=== PATIENT | female | born 1980 | race Caucasian/White ===

== ENCOUNTER 2023-06-27 06:04 | Day surgery (SDC) | payer OTHER, SELFPAY ==
[2023-06-27] VITALS (10 sets, daily range): BP systolic 113–130; BP diastolic 73–88; BMI 42.1
[2023-06-27] MEDS: TYLENOL 1000 MG PO (07:06)
[2023-06-27] MEDS: CELEBREX 200 MG PO (07:06)
[2023-06-27] MEDS: NEURONTIN 300 MG PO (07:06)
[2023-06-27] MEDS: HEPARIN 5000 UNITS SC (07:06)
[2023-06-27] MEDS: NORMOSOL-R 1000 IV (07:19)
--- NOTE | 2023-06-27 09:07 | OR.RPT ---
Operative Report
Operative Report
Preop diagnosis: Left labial granulation tissue and lesion, abnormal uterine bleeding
postop diagnosis anal vulvar fistula
Anesthesia General LMA intubation
Procedure exam under anesthesia, dilation and curettage
Surgeon Benton Osman
Assist: VIKTOR Pruitt
Procedure in detail: I was present in the operating room when she arrived, she was placed in her left side. Colonoscopy was performed by Dr. London there was no obvious evidence of fistulous tract or any other significant abnormalities throughout
the colon, a few diverticula were seen. After colonoscopy the patient was moved in the operating table and placed in lithotomy position using Jaquan stirrups. General anesthesia was induced and LMA intubation was performed, we examined the labia
carefully and noted presence of granulation tissue on the posterior aspect of left labium majora close to the perineal body. The patient was prepped and draped timeout procedure was completed she received 2 g of Ancef. The tract was examined and
explored with a probe and initially it was unclear if there was any obvious fistula present. Hydrogen peroxide was injected gently into the track and some dimpling of anal mucosa was identified and eventually this tract into the anus under direct
visualization. Dr. London placed a seton into the tract and tied at the level of perineum. Given the fact that she has an obvious anal vulvar fistula I did not perform partial simple vulvectomy as previously planned. And examined the vagina in its
entirety and I did not see any other concerning lesions. The patient does have a multiparous cervix and probably a grade 1 prolapse. Anterior lip of the cervix was grasped with single-tooth tenaculum, the uterus was sounded to 12 cm, the
endocervical canal was gently dilated sharp curettage of the endometrial canal was performed and tissue was submitted to pathology. I turned the case back to Dr. London who injected anesthetic around the site of the fistula tract with a plan to
return back to the operating room for excision of tract and anal flap in approximately 6 to 8 weeks. I was present and scrubbed for the entire procedure as dictated above.
[2023-06-27] MEDS: ZOFRAN 4 MG IV (09:12)
[2023-06-27] MEDS: SUBLIMAZE 50 MCG IV (09:15)
== END 2023-06-27 11:00 | disposition home or self-care (01) ==
LOC: SDS 06:04
PROVIDERS: ATTENDING PHYSICIAN Surgery
DX: Z12.11 Encounter for screening for malignant neoplasm of colon (principal); N89.8 Other specified noninflammatory disorders of vagina; N93.9 Abnormal uterine and vaginal bleeding, unspecified; A58 Granuloma inguinale; Z90.49 Acquired absence of other specified parts of digestive tract; K57.30 Diverticulosis of large intestine without perforation or abscess without bleeding; N82.3 Fistula of vagina to large intestine; K64.4 Residual hemorrhoidal skin tags; K63.89 Other specified diseases of intestine; N85.8 Other specified noninflammatory disorders of uterus
CPT/HCPCS: 58120; 45381; 46020; 88305; 86850; 86900; 86901

== ENCOUNTER 2023-08-29 06:09 | Day surgery (SDC) | payer OTHER, SELFPAY ==
[2023-08-24 07:47] VITALS: BMI 40.0
[2023-08-24 09:03] LABS: Hematocrit 38.1 % (37.0-47.0); Hemoglobin 12.3 g/dL (12.0-16.0); Mean Corp Hgb Conc. 32.3 g/dL (33.0-37.0); Mean Corpuscular Volume 80.5 fL (81.0-99.0); Mean Platelet Volume 9.8 fL (7.4-10.4); Platelet Count 362 10^3/uL (130-400); Red Blood Cell Count 4.73 10^6/uL (4.20-5.40); Red Cell Dist. Width 13.9 % (11.5-14.5); White Blood Cell Count 8.2 10^3/uL (4.8-10.8)
[2023-08-24 09:07] LABS: INR 0.97; PT 12.6 Sec (11.4-14.6)
[2023-08-24 09:08] LABS: APTT 30.6 Sec (23.4-35.0)
[2023-08-24 09:49] LABS: ALT (SGPT) 20 U/L (0-35); AST (SGOT) 21 U/L (14-36); Albumin 4.2 g/dl (3.5-5.0); Alkaline Phosphatase 138 U/L (38-126); Blood Urea Nitrogen 12 mg/dl (7-17); Calcium 9.4 mg/dl (8.4-10.2); Carbon Dioxide 25 mmol/L (22-30); Chloride 102 mmol/L (98-107); Estimated Creatinine Clearance > 125 ml/min; Glucose 102 mg/dl (70-99); Potassium 3.7 mmol/L (3.5-5.1); Sodium 139 mmol/L (135-145); Total Bilirubin 0.2 mg/dl (0.2-1.3); Total Protein 6.8 g/dl (6.3-8.2); eGFR > 60.00
[2023-08-29] VITALS (14 sets, daily range): BP systolic 121–161; BP diastolic 73–109; BMI 40.0; BMI 42.1
[2023-08-29] MEDS: TYLENOL 1000 MG PO (06:31)
[2023-08-29] MEDS: NORMOSOL-R 1000 IV (07:01)
[2023-08-29] MEDS: DILAUDID 0.25 MG IV ×2 (10:00→11:04)
[2023-08-29] MEDS: ROXICODONE 10 MG PO (11:57)
== END 2023-08-29 12:24 | disposition home or self-care (01) ==
LOC: SDS 06:09
PROVIDERS: ATTENDING PHYSICIAN Surgery; FAMILY PHYSICIAN Student in an Organized Health Care Education/Training Program
DX: N82.3 Fistula of vagina to large intestine (principal); R87.89 Other abnormal findings in specimens from female genital organs
CPT/HCPCS: 46288; 36415; 80053; 85027; 85610; 85730; J1335

== ENCOUNTER 2023-10-03 06:22 | Day surgery (SDC) | payer OTHER, SELFPAY ==
--- NOTE | 2023-10-02 15:22 | PTCARENOTE ---
Patient added on to OR schedule today for 10/02. Patient indicated last dose of Tirzepatide injection of 10mg was on Wednesday 09/[address] Sanchez was notified, no further requests made by Dr. Sanchez. Nasreen at Surgeon's office notified
of communication with Dr. Sanchez.
[2023-10-03 11:39] VITALS: BP 124/77; BMI 40.2
[2023-10-03] MEDS: TYLENOL 1000 MG PO (11:41)
[2023-10-03] MEDS: NORMOSOL-R 1000 IV (11:42)
== END 2023-10-03 13:32 | disposition home or self-care (01) ==
LOC: SDS 06:22
PROVIDERS: ATTENDING PHYSICIAN Surgery
DX: K60.5 Anorectal fistula (principal); Z53.8 Procedure and treatment not carried out for other reasons
CPT/HCPCS: 46280

== ENCOUNTER 2023-10-11 06:10 | Day surgery (SDC) | payer OTHER, SELFPAY ==
[2023-10-11] VITALS (7 sets, daily range): BP systolic 102–117; BP diastolic 61–80; BMI 40.6
[2023-10-11] MEDS: TYLENOL 1000 MG PO (06:39)
[2023-10-11] MEDS: NORMOSOL-R 1000 IV (07:15)
[2023-10-11] MEDS: TORADOL 15 MG IV (09:10)
== END 2023-10-11 09:40 | disposition home or self-care (01) ==
LOC: SDS 06:10
PROVIDERS: ATTENDING PHYSICIAN Surgery
DX: N82.3 Fistula of vagina to large intestine (principal); K60.5 Anorectal fistula
CPT/HCPCS: 46020

== ENCOUNTER 2024-05-09 07:40 | Emergency (ER) | payer OTHER, SELFPAY ==
[2024-05-09 07:45] VITALS: BP 117/80
--- NOTE | 2024-05-09 08:22 | ED.GENMED ---
History of Present Illness
General
Chief Complaint: Abdominal Symptoms
Time Seen by Provider: 05/09/24 08:01
History of Present Illness
History of Present Illness:
43-year-old male presents the emergency department for evaluation of right upper quadrant pain that began yesterday. She notes she has had left-sided abdominal pain for the past 5 days, felt this was secondary to her chronic recurrent
diverticulitis. She was started yesterday on Cipro and Flagyl however only took 1 dose of each. Notes that yesterday after eating lobster bisque she had acute right upper quadrant pain that is persisted into today. States she has been febrile to
101 Fahrenheit for the past 5 days. No bowel movement changes or lower urinary tract voiding symptoms. Prior abdominal surgical history includes sigmoid colectomy and abdominoplasty
Past History
Past History
ED Past Medical History: Asthma, GERD, HTN, Hypercholesterolemia and Other (Diverticulitis with perfocation)
ED Past Surgical History: Bowel resection (Sigmoid colon for Diverticulitid) and
Social History
Tobacco: Non-smoker
Alcohol: None
Personal:
Living: with family
Review of Systems
Review of Systems
Allergies reviewed?: Yes
All Other Systems: ROS reviewed and negative except as documented in HPI and ROS
Phy Exam
Physical Exam
Physical Exam:
GEN: Well appearing, NAD, WDWN
HEENT: Oral mucosa moist, no scleral icterus
Cardiac: Regular rate
Lung: No respiratory distress, no tachypnea
Abdomen: Soft, focal right upper quadrant tenderness, negative Pritchett sign
MSK: No gross deformity or injuries
Skin: Good color, no pallor or jaundice, no rashes
Neuro: AO x3, moves all extremities freely
Psych: Calm, cooperative
Course
Orders/Labs/Results
Orders:
Orders
05/09/24 08:19
Complete Blood Count/With Diff Urgent
Comprehensive Metabolic Panel Urgent
HCG, Serum Qualitative Screen Urgent
Comment: ADD ON
Lipase Urgent
05/09/24 08:48
CT Abd/Pel (IV only)-DH only Urgent
Comment:
Reason For Exam: RUQ pain
Ketorolac [Toradol] 15 mg IV NOW STA
05/09/24 09:07
Add On- LAB Urgent
Tests Added?: HCG qual
05/09/24 10:59
HYDROmorphone [Dilaudid] 0.5 mg IV NOW STA
05/09/24 12:08
Urinalysis Reflex To Culture Urgent
Date Specimen was Collected: 05/09/24
Time Specimen was Collected: 12:06
Urine Microscopic Reflex Cult Urgent
Urine Culture Urgent
GUNNER Source: U
Specimen Description:
Date Specimen was Collected: 05/09/24
Time Specimen was Collected: 12:06
05/09/24 12:26
CefTRIAXone [Rocephin] 1,000 mg IV NOW STA
05/09/24 13:05
HYDROmorphone [Dilaudid] 0.5 mg IV NOW STA
Abnormal Lab Results
05/09/24 05/09/24
08:19 12:08
WBC 14.3 H 10^3/uL
(4.8-10.8)
Hgb 11.9 L g/dL
(12.0-16.0)
Hct 36.3 L %
(37.0-47.0)
MCV 79.1 L fL
(81.0-99.0)
MCH 25.9 L pg
(27.0-31.0)
MCHC 32.8 L g/dL
(33.0-37.0)
Abs Immat Gran (auto) 0.1 H 10^3/uL
(0-0.05)
Absolute Neuts (auto) 9.9 H 10^3/uL
(1.4-6.5)
Absolute Monos (auto) 1.5 H 10^3/uL
(0.1-0.6)
Lymphocytes % 18.8 L %
(20.5-51.1)
Monocytes % 10.6 H %
(1.7-9.3)
Glucose 102 H mg/dl
(70-99)
Ur Occult Blood Reflex 1+ A
(Negative)
Leukocyte Esterase Rfl 1+ A
(Negative)
Urine Bacteria (Reflex) Few A
(Negative)
Urine Albumin (Reflex) 3+ A
(Neg - Trace)
05/09/24 08:19
05/09/24 08:19
Vital Signs
Initial and Last Documented VS:
Initial Vital Signs
Temp Pulse Resp BP Pulse Ox
97.7 F 88 16 117/80 98
05/09/24 07:45 05/09/24 07:45 05/09/24 07:45 05/09/24 07:45 05/09/24 07:45
Last Documented Vital Signs
Temp Pulse Resp BP Pulse Ox
97.7 F 85 16 109/69 99
05/09/24 07:45 05/09/24 10:53 05/09/24 10:53 05/09/24 10:53 05/09/24 10:53
MDM/Problems Addressed
MDM/Problems Addressed:
Patient is found to have signs of pyelonephritis on CT scan. Although urinalysis is not grossly positive, cannot discount the imaging findings and lack of other alternative source of pain. She does not have an exam consistent with acute
cholecystitis. Will treat with initial dose of IV antibiotics and cephalosporins to cover for broad-spectrum urinary bacteria
*Critical Care Note
Total Time (30-74mins, 75-104mins- exclusive of procedures): Not Applicable
ED Attending Note
-
Portions of this chart may have been created with voice recognition software.� Occasional wrong word or��sound alike� substitutions may have occurred due to the inherent limitations of voice recognition software.
Discharge Plan
Departure
Patient Disposition: Home (Routine Discharge)
Date of Disposition: 05/09/24
Time of Disposition: 12:59
Patient with high blood pressure during this ER visit?: No
Discharge Problem:
Acute pyelonephritis
Instructions: Urinary tract infections in adults
Prescriptions:
New
cefdinir 300 mg capsule
300 mg PO BID 9 Days Qty: 18 0RF
vancomycin 125 mg capsule
125 mg PO BID 14 Days Qty: 28 0RF
No Action
metoprolol succinate 50 MG tablet extended release 24 hr
50 mg PO QPM
rizatriptan 10 MG tablet,disintegrating
10 mg PO PRN PRN (Reason: migraines)
biotin 5,000 mcg Tablet,Disintegrating
10,000 mcg PO DAILY
famotidine 40 mg Tablet
40 mg PO HS
rwiemeeadu-buvqfluesz-zxa-cod [id number] mg Capsule
1 cap PO Q4H PRN (Reason: migraines)
rosuvastatin 5 mg Tablet
5 mg PO HS
losartan-hydrochlorothiazide 100-12.5 mg Tablet
1 tab PO HS
omeprazole 20 mg Tablet,Delayed Release (Dr/Ec)
20 mg PO DAILY
cholecalciferol (vitamin D3) [Vitamin D3] 125 mcg (5,000 unit) Tablet
50,000 mcg PO WEEKLY
Zepbound 5 mg/0.5 mL Pen Injector
10 mg SC QWEEK
polyethylene glycol 3350 [Miralax] 17 gram Powder In Packet
17 g PO DAILY
cyanocobalamin (vitamin B-12) 1,000 mcg Tablet, Sublingual
1,000 mcg SUBLINGUAL DAILY
alprazolam [Xanax] 0.5 mg Tablet
0.5 mg PO TID PRN (Reason: anxiety)
Patient Comments:
last taken couple months ago
ibuprofen 200 mg Tablet
400 mg PO Q6H PRN (Reason: pain)
melatonin 3 mg Tablet,Disintegrating
3 mg PO HS PRN (Reason: sleep)
oxycodone 5 mg tablet
10 mg PO Q4H
acetaminophen-codeine [Tylenol-Codeine #2] 300-15 mg Tablet
2 tab PO PRN PRN (Reason: pain)
oxycodone 5 mg tablet
5 mg PO Q6H PRN (Reason: Pain) Qty: 40 0RF
Referrals:
Lynda Meier MD [Family Provider] -
Interventions
Interventions:
*Risk Screen - Suicide Last Done: 05/09/24 07:45
*General Assessment Last Done: 05/09/24 08:59
*Neglect/Abuse Screening Last Done: 05/09/24 07:45
*ED- Fall Risk Assessment Last Done: 05/09/24 08:59
*ED COVID-19 Vaccine History Last Done: 05/09/24 08:59
*Nursing Disposition Last Done: 05/09/24 13:23
JU-Dujmte-[id number] Assessment Last Done: 05/09/24 08:59
Discharge Date and Time
Discharge Date/Time: 05/09/24 13:29
Print Language: IRAQI
[2024-05-09 08:29] LABS: % Basophils 0.4 % (0-2); % Eosinophils 0.4 % (0-6); % Immature Granulocytes 0.5 % (0-0.5); % Lymphocytes 18.8 % (20.5-51.1); % Monocytes 10.6 % (1.7-9.3); % Neutrophils 69.3 % (42.2-75.2); Absolute Basophils 0.1 10^3/uL (0-0.2); Absolute Eosinophils 0.1 10^3/uL (0-0.7); Absolute Immature Granulocytes 0.1 10^3/uL (0-0.05); Absolute Lymphocytes 2.7 10^3/uL (1.2-3.4); Absolute Monocytes 1.5 10^3/uL (0.1-0.6); Absolute Neutrophils 9.9 10^3/uL (1.4-6.5); Hematocrit 36.3 % (37.0-47.0); Hemoglobin 11.9 g/dL (12.0-16.0); Mean Corp Hgb Conc. 32.8 g/dL (33.0-37.0); Mean Corpuscular Hgb 25.9 pg (27.0-31.0); Mean Corpuscular Volume 79.1 fL (81.0-99.0); Mean Platelet Volume 9.3 fL (7.4-10.4); Nucleated Red Blood Cells % 0 %; Platelet Count 373 10^3/uL (130-400); Red Blood Cell Count 4.59 10^6/uL (4.20-5.40); Red Cell Dist. Width 14.5 % (11.5-14.5); White Blood Cell Count 14.3 10^3/uL (4.8-10.8)
[2024-05-09 08:47] LABS: ALT (SGPT) 12 U/L (0-35); AST (SGOT) 14 U/L (14-36); Albumin 3.9 g/dl (3.5-5.0); Alkaline Phosphatase 107 U/L (38-126); Blood Urea Nitrogen 12 mg/dl (7-17); Calcium 9.5 mg/dl (8.4-10.2); Carbon Dioxide 29 mmol/L (22-30); Chloride 101 mmol/L (98-107); Glucose 102 mg/dl (70-99); Lipase 27 U/L (23-300); Potassium 4.1 mmol/L (3.5-5.1); Sodium 138 mmol/L (135-145); Total Bilirubin 0.7 mg/dl (0.2-1.3); Total Protein 6.8 g/dl (6.3-8.2); eGFR > 60.00
[2024-05-09] MEDS: TORADOL 15 MG IV (08:52)
[2024-05-09 10:15] LABS: HCG, Serum Qualitative Screen Negative
[2024-05-09 10:53] VITALS: BP 109/69
[2024-05-09] MEDS: DILAUDID 0.5 MG IV ×2 (11:05→13:16)
[2024-05-09 12:18] LABS: Urine Albumin 3+ (Neg - Trace); Urine Bilirubin Negative (Negative); Urine Character Clear (Clear); Urine Color Yellow; Urine Glucose Negative (Negative); Urine Ketone Negative (Negative); Urine Leukocyte 1+ (Negative); Urine Nitrite Negative (Negative); Urine Occult Blood 1+ (Negative); Urine Urobilinogen Negative (Neg - 1+)
[2024-05-09] MEDS: ROCEPHIN 1000 MG IV (12:35)
[2024-05-09 12:45] LABS: Urine Red Blood Cell 0-2 /HPF (0-2); Urine White Cell 0-2 /HPF (0-5)
[2024-05-09 12:46] LABS: Urine Bacteria Few (Negative)
== END 2024-05-09 13:29 | disposition home or self-care (01) ==
LOC: EMR 07:40
PROVIDERS: Physician Assistant; EMERGENCY PHYSICIAN Emergency Medicine; FAMILY PHYSICIAN Student in an Organized Health Care Education/Training Program
DX: N10 Acute pyelonephritis (principal); J45.909 Unspecified asthma, uncomplicated; I10 Essential (primary) hypertension; E78.00 Pure hypercholesterolemia, unspecified; K21.9 Gastro-esophageal reflux disease without esophagitis
CPT/HCPCS: 96374; 96375; 96376; 99284; 74177; 80053; 81003; 81015; 83690; 84703; 85025; 87086; Q9967

== ENCOUNTER 2024-07-30 06:05 | Day surgery (SDC) | payer OTHER, SELFPAY ==
[2024-07-30 13:26] VITALS: BMI 37.3
[2024-07-30 13:27] VITALS: BMI 37.3
[2024-07-30 13:28] VITALS: BP 134/70
[2024-07-30 15:57] VITALS: BP 97/83
[2024-07-30 16:00] VITALS: BP 108/72
[2024-07-30 16:15] VITALS: BP 108/70
[2024-07-30 16:30] VITALS: BP 107/70
== END 2024-07-30 16:00 | disposition home or self-care (01) ==
LOC: GI 06:05
PROVIDERS: ATTENDING PHYSICIAN Surgery
DX: Z09 Encounter for follow-up examination after completed treatment for conditions other than malignant neoplasm (principal); K60.30 Anal fistula, unspecified
CPT/HCPCS: 45330

== ENCOUNTER 2024-12-15 06:03 | Day surgery (SDC) | payer OTHER, SELFPAY ==
[2024-12-05 11:04] LABS: Hematocrit 40.5 % (37.0-47.0); Hemoglobin 13.2 g/dL (12.0-16.0); Mean Corp Hgb Conc. 32.6 g/dL (33.0-37.0); Mean Corpuscular Volume 80.8 fL (81.0-99.0); Platelet Count 385 10^3/uL (130-400); Red Cell Dist. Width 14.1 % (11.5-14.5)
[2024-12-05 13:09] LABS: Blood Urea Nitrogen 13 mg/dl (7-17); Calcium 9.3 mg/dl (8.4-10.2); Carbon Dioxide 29 mmol/L (22-30); Chloride 101 mmol/L (98-107); Glucose 87 mg/dl (70-99); Potassium 4.4 mmol/L (3.5-5.1); Sodium 139 mmol/L (135-145); eGFR > 60.00
[2024-12-05 13:59] VITALS: BMI 36.2
[2024-12-15] VITALS (13 sets, daily range): BP systolic 106–144; BP diastolic 56–96; BMI 36.2
[2024-12-15] MEDS: NEURONTIN 600 MG PO (07:05)
[2024-12-15] MEDS: NORMOSOL-R/PLASMALYTE-A 1000 IV (07:05)
--- NOTE | 2024-12-15 10:32 | W.SUR.POST ---
Surgical Immediate Post Op
Note
Pre Op Diagnosis: Stage II Rectocele
Post Op Diagnosis: Stage 2 Rectocele
Procedure Performed: posterior colporrhaphy
Primary Surgeon: Rodo Syed
Secondary Surgeons: n/a
Anesthesia: General anesthesia
Estimated Blood Loss: 10 mL
Drains/Shunts: n/a
Specimens/Cultures: none
Complications: none
Operative Findings: stage II posterior vaginal wall prolapse
[2024-12-15] MEDS: MOTRIN 600 MG PO (12:59)
[2024-12-15] MEDS: TYLENOL 650 MG PO (13:00)
== END 2024-12-15 13:08 | disposition home or self-care (01) ==
LOC: SDS 06:03
PROVIDERS: ATTENDING PHYSICIAN Obstetrics & Gynecology; FAMILY PHYSICIAN Student in an Organized Health Care Education/Training Program; OTHER PHYSICIAN Surgery
DX: N81.6 Rectocele (principal); N82.3 Fistula of vagina to large intestine; N39.3 Stress incontinence (female) (male); N36.41 Hypermobility of urethra
CPT/HCPCS: 57250; 46275; 36415; 80048; 85027; 86850; 86900; 86901; 93005